=== PATIENT | female | born 1990 | race Caucasian/White ===

== ENCOUNTER 2021-07-26 14:49 | Emergency (ER) | payer OTHER, SELFPAY ==
--- NOTE | ~2021-07-26 | XR_ITS ---
EXAMINATION: XR CHEST CLINICAL INFORMATION: Shortness of breath, history of asthma. COMPARISON: None TECHNIQUE: 2 views of the chest were obtained. FINDINGS: No significant abnormality is noted involving the heart, lungs, mediastinum, bony thorax or soft tissues. XR/XR chest 2V IMPRESSION: Unremarkable examination.
[2021-07-26 17:43] VITALS: BP 136/92; PULSE 83; RESP 18; TEMP 36.6; O2SAT 96; BMI 27.4
--- NOTE | 2021-07-26 18:03 | ED.URI ---
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 Patient states she needs a refill on her albuterol inhaler, and has been using her inhaler sparingly. She did take it once this morning. States that her son has been sick at home. No fevers. She is vaccinated for COVID. She Related Data Previous Rx's Medication Instructions Recorded albuterol sulfate 90 mcg/actuation 2 puff INHALATION Q4-6H 7 Days 07/26/21 aerosol inhaler #8.5 g prednisone 20 mg tablet 40 mg PO DAILY 5 Days #10 tab 07/26/21 Allergies Allergy/AdvReac Type Severity Reaction Status Date / Time No Known Allergies Allergy Unverified 05/15/20 18:17 Review of Systems Constitutional: Constitutional: Denies body ache(s), Denies chills, Reports fatigue, Denies fever(s), Denies headache(s), Denies malaise and Denies weakness Eyes: Eyes: Denies diplopia ENT: Denies vertigo, Denies dizziness, Denies otalgia, Denies headache(s), Denies mouth pain, Denies post nasal drip, Denies sinus pain, Denies sinus pressure, Denies sore throat and Denies throat swelling Cardiovascular: Cardiovascular: Denies chest pain, Denies syncope, Denies leg edema, Denies lightheadedness, Denies Loss of Consciousness, Denies palpitations and Reports dyspnea Respiratory: Respiratory: Denies chest congestion, Reports cough, Reports dyspnea and Reports wheezing Gastrointestinal: Gastrointestinal: Denies abdominal pain, Denies hematochezia, Denies constipation, Denies diarrhea, Reports nausea and Denies vomiting Musculoskeletal: Musculoskeletal: Reports no additional musculoskeletal complaints Neurologic: Denies confusion, Denies vertigo, Denies dizziness, Denies syncope, Denies headache(s) and Denies weakness Psychiatric: Psychiatric: Denies anxiety, Denies confusion and Denies depression Endocrine: Endocrine: Reports fatigue and Denies palpitations Allergic/Immunologic: Allergic/Immunologic: Denies throat swelling and Reports wheezing PMFSH Social History Social History Advance Directives: No Advance Directives Information Provided: No Patient : No Physical Exam Vital Signs: Vital Signs: Last Vital Signs Temp 98 F 07/26/21 17:43 Pulse 83 07/26/21 17:43 Resp 18 07/26/21 17:43 BP 136/92 H 07/26/21 17:43 Pulse Ox 96 07/26/21 17:43 Body Mass Index 27.4 Const: General: No confusion Nutritional Appearance: well nourished Orientation/consciousness: No confusion Limitations: no limitations HENMT: Head: Yes normal to inspection, Yes normocephalic and Yes atraumatic Ears: hearing grossly normal bilaterally, external ears normal, TM's normal bilaterally and EAC's normal General nose exam: Normal external nose present Face and sinus: Yes normal facial exam and Yes sinuses nontender Mouth: Normal oral and palatal mucosa present Throat: Yes posterior oropharynx normal Eyes: Conjunctivae: conjunctivae normal Pupils: Equal, round and reactive pupils present EOM: EOMs intact bilaterally Neck: Neck: Yes full ROM, Yes no lymphadenopathy and Yes supple Resp: Other: Lungs very tight Effort & Inspection: normal respiratory effort and able to speak in complete sentences Auscultation: not clear to auscultation bilaterally, no crackles, no rales, no rhonchi, no wheezes and diminished lung sounds bilateral Cardio: Rate: regular rate Rhythm: regular rhythm Heart sounds: S1 normal heart sound present and S2 normal heart sound present GI: Inspection: Yes normal to inspection Palpation (GI): Soft to palpation, nontender, no guarding and not rigid Percussion: Yes normal to percussion Auscultation: normal bowel sounds Skin: General skin exam: no rashes or lesions noted Neuro: General: No confusion Cranial nerves: Yes Equal, round and reactive pupils present Extrem: General: Yes normal to inspection and Yes full ROM Psych: Appearance: grossly normal Affect: normal affect Attitude: cooperative Thought process: Normal thought process present Course Course Course Narrative: 31-year-old female with a history of asthma with 3 days of wheezing and shortness of breath. On exam, patient is satting 96% on room air with respirations of 18, known work of breathing. Patient is speaking in complete sentences, no pursed or tripodding. Patient is not in respiratory distress. Upon auscultation of lungs, patient is tight, not moving much air. CXR unremarkable. Labs are normal, negative D-dimer. On re- exam, after neb treatment, lungs are moving more air. Prescribed albuterol inhaler, 2 puffs every 4 hours for the next 3 days, short course prednisone. Give return precautions of fever shortness of breath. MDM - URI/Sore Throat Lab Data Result diagrams: 07/26/21 19:06 07/26/21 19:06 Labs: Lab Results 07/26/21 07/26/21 07/26/21 Range/Units 19:06 19:06 19:06 WBC 9.3 (4.8-10.8) X10*3/uL RBC 4.84 (4.20-5.50) X10*6/uL Hgb 13.4 (12.0-16.0) g/dl Hct 41.5 (37.0-47.0) % MCV 85.7 (80.0-98.0) fL MCH 27.7 (27.0-33.0) pg MCHC 32.3 (31.0-35.0) g/dl RDW 13.0 (11.0-16.0) % Plt Count 281 (160-400) X10*3/uL MPV 10.3 (9.4-12.3) fL Immature Gran % (Auto) 0.1 (0.0-0.4) % Neut % (Auto) 53.3 (45-73) % Lymph % (Auto) 32.7 (20-40) % [place] % (Auto) 9.5 (2-11) % Eos % (Auto) 3.6 (0-4) % Baso % (Auto) 0.8 (0-2) % Lymph # (Auto) 3.0 (1.2-4.9) X10*3/uL [place] # (Auto) 0.9 (0.1-1.2) X10*3/uL Eos # (Auto) 0.3 (0.0-0.4) X10*3/uL Baso # (Auto) 0.1 (0.0-0.2) X10*3/uL Abs Immat Gran (auto) 0.01 (0.00-0.03) X10*3/uL Absolute Neuts (auto) 5.0 (2.0-8.3) x10*3/uL Absolute Nucleated RBC 0.000 (0.0-0.012) X10*3/uL Nucleated RBC % (auto) 0.0 (0.0-0.2) /100WBC D-Dimer High Sensitivty < 150 NG/ML Sodium 138 (135-145) mmol/L Potassium 4.2 (3.3-5.1) mmol/L Chloride 102 (96-108) mmol/L Carbon Dioxide 28 (22-29) mmol/L Anion Gap 12 (12-20) BUN 8 L (9-16) mg/dL Creatinine 0.68 (0.5-1.4) mg/dL Estim Creat Clear Calc 119.2 Estimated GFR > 60 Random Glucose 78 (60-115) mg/dL Calcium 9.6 (8.4-10.2) mg/dL Total Bilirubin 0.3 (0.0-1.0) mg/dL AST 22 (5-31) U/L ALT 21 (0-31) U/L Alkaline Phosphatase 75 (39-117) U/L Total Protein 7.2 (6.5-8.0) g/dL Albumin 4.2 (3.5-5.0) g/dL Discharge Plan Discharge Clinical Impression: Upper respiratory infection Qualifiers: URI type: unspecified viral URI Qualified Code(s): J06.9 - Acute upper respiratory infection, unspecified Asthma exacerbation Qualifiers: Asthma severity: unspecified severity Asthma persistence: unspecified Qualified Code(s): J45.901 - Unspecified asthma with (acute) exacerbation Patient Disposition: Home, Self-Care Instructions: Bronchospasm (ED) Additional Instructions: Please return if you have fevers, worsening shortness of breath, chest pain Take your prednisone in the morning. Use your albuterol inhaler, 2 puffs every 4 hours while your awake for the next 3 days. Out of work until Tuesday. Prescriptions: New albuterol sulfate 90 mcg/actuation HFA aerosol inhaler 2 puff inhalation Q4-6H 7 Days Qty: 8.5 RF: 0 prednisone 20 mg tablet 40 mg PO DAILY 5 Days Qty: 10 RF: 0 Stand Alone Forms: Work/School Release Interventions: ED Discharge Assessment Last Done: 07/26/21 20:19 Discharge Date/Time: 07/26/21 20:20
[2021-07-26] MEDS: Albuterol/Iprat 2.5/0.5MG 3 ML AMPUL.NEB INHALE (18:55)
[2021-07-26 19:12] LABS: MANUAL DIFF FLAG NO
[2021-07-26 19:13] LABS: Basophils Absolute Auto 0.1 X10*3/uL (0.0-0.2); Basophils Percent Auto 0.8 % (0-2); Eosinophils Absolute Auto 0.3 X10*3/uL (0.0-0.4); Eosinophils Percent Auto 3.6 % (0-4); Hematocrit 41.5 % (37.0-47.0); Hemoglobin 13.4 g/dl (12.0-16.0); Imm Gran Abs Auto 0.01 X10*3/uL (0.00-0.03); Imm Gran Pct Auto 0.1 % (0.0-0.4); Lymphocytes Percent Auto 32.7 % (20-40); Mean Corpuscular HGB Conc 32.3 g/dl (31.0-35.0); Mean Corpuscular Hemoglobin 27.7 pg (27.0-33.0); Mean Corpuscular Volume 85.7 fL (80.0-98.0); Mean Platelet Volume 10.3 fL (9.4-12.3); Monocytes Absolute Auto 0.9 X10*3/uL (0.1-1.2); Monocytes Percent Auto 9.5 % (2-11); Neutrophils Percent Auto 53.3 % (45-73); Platelet Count 281 X10*3/uL (160-400); Red Blood Count 4.84 X10*6/uL (4.20-5.50); White Blood Count 9.3 X10*3/uL (4.8-10.8)
[2021-07-26] MEDS: predniSONE 20 MG TABLET 60 MG PO (19:14)
[2021-07-26 19:36] LABS: D Dimer High Sensitivity < 150 NG/ML
[2021-07-26 19:40] LABS: Alanine Aminotransferase 21 U/L (0-31); Albumin Level 4.2 g/dL (3.5-5.0); Alkaline Phosphatase 75 U/L (39-117); Anion Gap 12 (12-20); Aspartate Amino Transferase 22 U/L (5-31); Bilirubin Total 0.3 mg/dL (0.0-1.0); Blood Urea Nitrogen 8 mg/dL (9-16); Calcium 9.6 mg/dL (8.4-10.2); Carbon Dioxide 28 mmol/L (22-29); Chloride 102 mmol/L (96-108); Creatinine Clr Calc Pharmacy 119.2; Estimated Glomerular Filt Rate > 60; Glucose Random 78 mg/dL (60-115); Potassium 4.2 mmol/L (3.3-5.1); Sodium 138 mmol/L (135-145); Total Protein 7.2 g/dL (6.5-8.0)
== END 2021-07-26 20:20 | disposition home or self-care (01) ==
PROVIDERS: Physician Assistant; Emergency Provider Internal Medicine; PCP Nurse Practitioner Family
DX: J06.9 Acute upper respiratory infection, unspecified (principal); J45.901 Unspecified asthma with (acute) exacerbation
CPT/HCPCS: 36415; 71046; 80053; 85025; 85379; 99283; 99284

== ENCOUNTER 2022-09-28 12:55 | Emergency (ER) | payer OTHER, SELFPAY ==
[2022-09-28 14:53] VITALS: BP 122/74; PULSE 92; RESP 20; TEMP 36.5; O2SAT 99; BMI 33.3
--- NOTE | 2022-09-28 14:56 | ED.GENADULT ---
HPI - General Adult General Chief complaint: Upper Respiratory Symptoms <PRISCILA English - Last Filed: 10/04/22 12:25> Stated complaint: sore throat <PRISCILA English - Last Filed: 10/04/22 12:25> Time Seen by Provider: 09/28/22 15:15 <PRISCILA English - Last Filed: 10/04/22 12:25> Source: patient <PRISCILA Hernandez - Last Filed: 09/28/22 17:00> Mode of arrival: ambulatory <PRISCILA Hernandez - Last Filed: 09/28/22 17:00> Limitations: no limitations <PRISCILA Hernandez - Last Filed: 09/28/22 17:00> History of Present Illness HPI narrative: 32-year-old female presents to the ER for evaluation of sore throat, headaches and intermittent fevers for the last couple of days. She is here with her 3 sons who all have similar symptoms. She is . She denies any abdominal pain or vaginal bleeding. She is eating and drinking normally. She reports seeing white spots on her tonsils. She also sees a spot on her son's tonsils. <PRISCILA Hernandez - Last Filed: 09/28/22 17:00> MD complaint: Sore throat <PRISCILA Hernandez - Last Filed: 09/28/22 17:00> Location: mouth <PRISCILA Hernandez - Last Filed: 09/28/22 17:00> Radiation: non-radiation <PRISCILA Hernandez - Last Filed: 09/28/22 17:00> Severity: moderate <PRISCILA Hernandez - Last Filed: 09/28/22 17:00> Severity scale (1-10): 5 <PRISCILA Hernandez Last Filed: 09/28/22 17:00> Quality: sharp <PRISCILA Hernandez Last Filed: 09/28/22 17:00> Pain Consistency: intermittent <PRISCILA Hernandez Last Filed: 09/28/22 17:00> Relieving factors: none <PRISCILA Hernandez Last Filed: 09/28/22 17:00> Exacerbating factors: eating <PRISCILA Hernandez - Last Filed: 09/28/22 17:00> Associated symptoms: cough, fever/chills and headaches <PRISCILA Hernandez - Last Filed: 09/28/22 17:00> Treatments prior to arrival: none <PRISCILA Hernandez - Last Filed: 09/28/22 17:00> Related Data Home medications: Previous Rx's Medication Instructions Recorded albuterol sulfate 90 mcg/actuation 2 puff inhalation Q4-6H wheezing 7 07/26/21 aerosol inhaler days #8.5 grams prednisone 20 mg tablet 40 mg PO DAILY 5 days #10 tabs 07/26/21 amoxicillin 500 mg tablet 500 mg PO BID #20 tabs 09/28/22 <PRISCILA English Last Filed: 10/04/22 12:25> Allergies/adverse reactions: Allergies Allergy/AdvReac Type Severity Reaction Status Date / Time No Known Allergies Allergy Unverified 05/15/20 18:17 <PRISCILA English - Last Filed: 10/04/22 12:25> Review of Systems Review of Systems: Yes all other systems are reviewed and are negative <PRISCILA Hernandez - Last Filed: 09/28/22 17:00> [facility] Social History Social History: Social History Advance Directives: No Advance Directives Information Provided: No <PRISCILA English - Last Filed: 10/04/22 12:25> Physical Exam ED Vital Signs: Vital Signs - 24 hr 09/28/22 14:53 Temperature 97.7 F Pulse Rate 92 Respiratory Rate 20 Blood Pressure 122/74 Pulse Oximetry 99 Oxygen Delivery Method Room Air BMI result Body Mass Index 33.3 <PRISCILA English - Last Filed: 10/04/22 12:25> Vital Signs - 24 hr 09/28/22 14:53 Temperature 97.7 F Pulse Rate 92 Respiratory Rate 20 Blood Pressure 122/74 Pulse Oximetry 99 Oxygen Delivery Method Room Air BMI result Body Mass Index 33.3 <PRISCILA Hernandez - Last Filed: 09/28/22 17:00> Appearance: Alert. Oriented X3. No acute distress. Eyes: Pupils equal, round and reactive to light. ENT: Pharynx with moist mucous membranes. There is bilateral tonsillar enlargement with bilateral exudates, posterior pharynx with moderate generalized erythema, uvula midline. Handling secretions normally. Normal tympanic membranes bilaterally. Neck: Normal inspection. Neck supple. CVS: Normal heart rate and rhythm. Pulses normal. Respiratory: No respiratory distress. Breath sounds normal. Abdomen: Soft and nontender. +BS x4 Skin: Skin warm and dry. Normal skin color. Normal skin turgor. No rashes. Extremities: No lower extremity edema. Neuro: Oriented X 3. Grossly normal, nonfocal <PRISCILA Hernandez - Last Filed: 09/28/22 17:00> Course Course Course Narrative: RME: patient here for sore throat, chills, cold sweats. children has similar symptoms. NO abdominal pain, vaginal bleeding, nausea, or vomiting. SaRS and strep ordered <PRISCILA English - Last Filed: 10/04/22 12:25> Reevaluation(s) Reevaluation #1: Positive for strep. Amoxicillin is safe in . Stable for discharge home with p.o. antibiotics and outpatient follow-up. Patient agrees with plan. <PRISCILA Hernandez - Last Filed: 09/28/22 17:00> Medical Decision Making Differential Diagnosis Differential Diagnoses: The differential diagnosis associated with the presentation includes <PRISCILA Hernandez - Last Filed: 09/28/22 17:00> Strep throat, COVID, flu, RSV, other viral syndrome, less likely retropharyngeal abscess or peritonsillar abscess. <PRISCILA Hernandez - Last Filed: 09/28/22 17:00> Lab Data MDM Lab Attestation statement: I reviewed the patient's lab results. <PRISCILA Hernandez - Last Filed: 09/28/22 17:00> Labs: Lab Results 09/28/22 09/28/22 Range/Units 15:09 15:09 Influenza Type A (PCR) NEGATIVE (Negative) Influenza Type B (PCR) NEGATIVE (Negative) RSV RNA Qual (PCR) NEGATIVE (Negative) SARS-CoV-2 RNA (RT-PCR) NEGATIVE (Negative) S. pyogenes GrpA SEBLE Positive A (Negative) <PRISCILA English Last Filed: 10/04/22 12:25> Lab Results 09/28/22 09/28/22 Range/Units 15:09 15:09 Influenza Type A (PCR) NEGATIVE (Negative) Influenza Type B (PCR) NEGATIVE (Negative) RSV RNA Qual (PCR) NEGATIVE (Negative) SARS-CoV-2 RNA (RT-PCR) NEGATIVE (Negative) S. pyogenes GrpA SEBLE Positive A (Negative) <PRISCILA Hernandez - Last Filed: 09/28/22 17:00> External Record Review External record reviewed: Outpatient record, Prior outpatient labs and Prior outpatient radiology <PRISCILA Hernandez - Last Filed: 09/28/22 17:00> Prescription Management I considered prescription management with: Pain Medication and Antibiotic <PRISCILA Hernandez Last Filed: 09/28/22 17:00> Critical Care Time Critical Care Time Critical Care Time: No <PRISCILA Hernandez - Last Filed: 09/28/22 17:00> Discharge Plan Discharge Clinical Impression: Strep pharyngitis <PRISCILA English Last Filed: 10/04/22 12:25> Patient Disposition: Home, Self-Care <PRISCILA English - Last Filed: 10/04/22 12:25> Instructions: Strep Throat (ED) <PRISCILA English - Last Filed: 10/04/22 12:25> Additional Instructions: You tested positive for Strep throat. You are negative for COVID, Flu and RSV. Give the prescribed antibiotic as directed, complete the entire course and do not miss any doses. Use warm salt water gargles several times per day. You currently take Tylenol for fevers and throat pain. Follow-up with your OBGYN and PCP. <PRISCILA English - Last Filed: 10/04/22 12:25> Prescriptions: New amoxicillin 500 mg tablet 500 mg PO BID Qty: 20 0RF No Action albuterol sulfate 90 mcg/actuation HFA aerosol inhaler 2 puff inhalation Q4-6H 7 Days Qty: 8.5 0RF Rx Instructions: one refill prednisone 20 mg tablet 40 mg PO DAILY 5 Days Qty: 10 0RF Rx Instructions: take in the morning <PRISCILA Englihs Last Filed: 10/04/22 12:25> Interventions: ED Discharge Assessment Last Done: 09/28/22 16:37 <PRISCILA English Last Filed: 10/04/22 12:25> Discharge Date/Time: 09/28/22 16:37 <PRISCILA English - Last Filed: 10/04/22 12:25>
[2022-09-28 15:53] LABS: IDNOW Serial# 6674DD1D
[2022-09-28 15:54] LABS: Strep A Nucleic Acid Positive (Negative)
[2022-09-28 16:00] LABS: Influenza A PCR NEGATIVE (Negative); Influenza B PCR NEGATIVE (Negative); Resp Syncy Virus RNA Qual PCR NEGATIVE (Negative); SARS COV2 PCR INHOUSE NEGATIVE (Negative)
== END 2022-09-28 16:37 | disposition home or self-care (01) ==
PROVIDERS: Physician Assistant; Emergency Provider Student in an Organized Health Care Education/Training Program; PCP Nurse Practitioner Family
DX: J02.0 Streptococcal pharyngitis (principal); Z20.822 Contact with and (suspected) exposure to COVID-19; Z20.828 Contact with and (suspected) exposure to other viral communicable diseases
CPT/HCPCS: 0241U; 87651; 99282; 99283